=== PATIENT | female | born 1980 | race Caucasian/White ===

== ENCOUNTER → 2018-12-14 | Outpatient (CLI) | payer BC, OTHER ==
[~2018-12-14] MED LIST: CALC-80; CPR500T; HOLD METFORMIN - RECEIVED CONTRAST 20 ML VIAL IV SCH; HYDR1TAB PO; IOHEXOL 350 MG/ML 100 ML (OMNIPAQUE 350) VIAL IV ONE; MULT-608
--- NOTE | 2018-12-14 12:00 | Diagnostic Imaging Report ---
PROCEDURE: CT neck soft tissue with contrast. TECHNIQUE: Multiple contiguous axial images were obtained through the neck after the administration of contrast. Auto Exposure Controls were utilized during the CT exam to meet ALARA standards for radiation dose reduction. INDICATION: Right neck mass COMPARISON: There are no prior studies available for comparison. FINDINGS: Reportedly, there is clinical concern regarding a mass involving the right neck. There is a marker in place in the right supraclavicular region. However, there is no sign of a mass in this area. No other mass or adenopathy involving the neck is identified. The parotid and submandibular glands are symmetrical and within normal limits. The thyroid gland is homogeneous and not enlarged. The tracheal air shadow is not compressed or deviated. The sections through the lung apices and the skull base show no sign of an acute abnormality. IMPRESSION: 1. There is no mass in the area of the patient's palpable abnormality in the right supraclavicular region. Clinical followup is recommended. 2. No other mass or adenopathy is identified. 3. There is no sign of an acute abnormality. Dictated by: Dictated on workstation # [id number]
== END ==
LOC: RAD 09:39
PROVIDERS: ATTEND Otolaryngology Otolaryngology/Facial Plastic Surgery
DX: R22.1 Localized swelling, mass and lump, neck (principal)
CPT/HCPCS: 70491

== ENCOUNTER → 2020-11-27 | Outpatient (CLI) | payer OTHER ==
[~2020-11-27] MED LIST changes: -HOLD METFORMIN - RECEIVED CONTRAST 20 ML VIAL IV SCH; -IOHEXOL 350 MG/ML 100 ML (OMNIPAQUE 350) VIAL IV ONE
--- NOTE | 2020-11-27 11:51 | Diagnostic Imaging Report ---
INDICATION: Neck pain. COMPARISON: None FINDINGS: Frontal, lateral, and open-mouth radiographic views of the cervical spine were obtained. Cervical spine is seen down to the C7-T1 level on the lateral view. Static alignment is maintained. There is no significant jim- or retrolisthesis. There is no evidence of jumped facets. Open-mouth view shows normal C1-C2 alignment. Vertebral body heights are preserved. There is no acute fracture. Mild degenerative changes are noted and consist of intervertebral disc height loss. Note is also made of bilateral C7 cervical ribs. Included portions of the lung apices are clear. IMPRESSION: 1. No acute fracture or dislocation of the cervical spine. 2. Mild multilevel degenerative changes. Dictated by: Dictated on workstation # [id number]
== END ==
LOC: RAD 11:18
PROVIDERS: ATTEND Nurse Practitioner Family
DX: M47.812 Spondylosis without myelopathy or radiculopathy, cervical region (principal)
CPT/HCPCS: 72040

== ENCOUNTER → 2021-01-10 | Outpatient (CLI) | payer OTHER ==
--- NOTE | 2021-01-10 10:24 | Diagnostic Imaging Report ---
PROCEDURE: MR imaging cervical spine without contrast. TECHNIQUE: Multiplanar, multisequence MR imaging of the cervical spine was performed without contrast. INDICATION: Neck pain. No prior studies are available for comparison. Curvature and alignment to the cervical spine is normal. Vertebral body marrow signal is normal. There is some generalized degenerative disc disease with mild disc space narrowing and desiccation and marginal osteophyte formation. The cervical spinal cord shows homogeneous signal intensity and normal morphology. The craniocervical junction is unremarkable. C2-C3: Central canal and neural foramina are widely patent. C3-C4: Broad-based disc/osteophyte complex does indent the ventral thecal sac. No significant canal narrowing is seen. There is very mild neural foraminal narrowing bilaterally. C4-C5: Broad-based disc/osteophyte complex indents the ventral thecal sac. This is very mild narrowing of the central canal. Neural foramina are patent. C5-C6: There is broad-based disc/osteophyte complex with asymmetric left para-midline broad-based disc/osteophyte complex indenting the ventral thecal sac. This does produce moderate narrowing of the canal. There is significant narrowing of the left neural foramen. Right neural foramen is patent. C6-C7: Broad-based disc/osteophyte complex indents the ventral thecal sac. There is mild narrowing of the canal. There is also mild narrowing of bilateral neural foramina. C7-T1: No central canal or neural foraminal narrowing is identified. IMPRESSION: Generalized cervical spondylosis with mild central canal and neural foraminal narrowing described level by level above. Dictated by: Dictated on workstation # [id number]
== END ==
LOC: RAD 08:30
PROVIDERS: ATTEND Nurse Practitioner Family
DX: M47.22 Other spondylosis with radiculopathy, cervical region (principal); M48.02 Spinal stenosis, cervical region
CPT/HCPCS: 72141

== ENCOUNTER 2021-03-04 11:12 | Outpatient (RCR) | payer OTHER | END 2021-03-11 | disposition home or self-care (01) | PROVIDERS: ATTEND Nurse Practitioner Family | DX: M54.2 Cervicalgia (principal) ==

== ENCOUNTER → 2021-06-24 | Outpatient (RCR) | payer OTHER | END | disposition home or self-care (01) | PROVIDERS: ATTEND Nurse Practitioner Family | DX: M54.2 Cervicalgia (principal) ==

== ENCOUNTER 2021-08-22 11:13 | Outpatient (RCR) | payer OTHER | END 2021-08-23 | disposition home or self-care (01) | PROVIDERS: ATTEND Nurse Practitioner Family | DX: M54.2 Cervicalgia (principal) ==

== ENCOUNTER 2021-09-19 10:00 | Outpatient (RCR) | payer OTHER | END 2021-09-23 | disposition home or self-care (01) | PROVIDERS: ATTEND Nurse Practitioner Family | DX: M54.2 Cervicalgia (principal) ==

== ENCOUNTER 2021-10-17 12:58 | Outpatient (RCR) | payer OTHER | END 2021-10-21 | disposition home or self-care (01) | PROVIDERS: ATTEND Nurse Practitioner Family | DX: M54.2 Cervicalgia (principal) ==

== ENCOUNTER → 2021-11-21 | Outpatient (RCR) | payer OTHER | END | disposition home or self-care (01) | PROVIDERS: ATTEND Nurse Practitioner Family | DX: M54.2 Cervicalgia (principal) ==

== ENCOUNTER 2021-12-19 09:24 | Outpatient (RCR) | payer OTHER | END 2021-12-21 | disposition home or self-care (01) | PROVIDERS: ATTEND Nurse Practitioner Family | DX: M54.2 Cervicalgia (principal); F17.200 Nicotine dependence, unspecified, uncomplicated ==

== ENCOUNTER 2022-01-17 11:25 | Outpatient (RCR) | payer OTHER | END 2022-01-21 | disposition home or self-care (01) | PROVIDERS: ATTEND Nurse Practitioner Family | DX: M54.2 Cervicalgia (principal) ==

== ENCOUNTER → 2022-02-20 | Outpatient (RCR) | payer OTHER | END | disposition home or self-care (01) | PROVIDERS: ATTEND Nurse Practitioner Family | DX: M54.2 Cervicalgia (principal) ==

== ENCOUNTER 2022-03-13 09:40 | Outpatient (RCR) | payer OTHER | END 2022-03-23 | disposition home or self-care (01) | PROVIDERS: ATTEND Nurse Practitioner Family | DX: M54.2 Cervicalgia (principal) ==

== ENCOUNTER 2022-04-18 14:00 | Outpatient (RCR) | payer OTHER | END 2022-04-23 | disposition home or self-care (01) | PROVIDERS: ATTEND Nurse Practitioner Family | DX: M54.2 Cervicalgia (principal) ==

== ENCOUNTER 2022-05-22 10:28 | Outpatient (RCR) | payer OTHER | END 2022-05-23 | disposition home or self-care (01) | PROVIDERS: ATTEND Nurse Practitioner Family | DX: M54.2 Cervicalgia (principal) ==

== ENCOUNTER 2022-06-18 14:30 | Outpatient (RCR) | payer OTHER | END 2022-06-23 | disposition home or self-care (01) | PROVIDERS: ATTEND Nurse Practitioner Family | DX: M54.2 Cervicalgia (principal) ==

== ENCOUNTER 2022-07-21 14:25 | Outpatient (RCR) | payer OTHER | END 2022-07-23 | disposition home or self-care (01) | PROVIDERS: ATTEND Nurse Practitioner Family | DX: M54.2 Cervicalgia (principal) ==

== ENCOUNTER 2022-08-22 16:08 | Outpatient (RCR) | payer OTHER | END 2022-08-23 | disposition home or self-care (01) | PROVIDERS: ATTEND Nurse Practitioner Family | DX: M54.2 Cervicalgia (principal) ==

== ENCOUNTER 2022-09-23 11:15 | Outpatient (RCR) | payer OTHER | END 2022-09-23 21:00 | disposition home or self-care (01) | PROVIDERS: ATTEND Nurse Practitioner Family | DX: M54.2 Cervicalgia (principal) ==

== ENCOUNTER 2022-10-17 11:24 | Outpatient (RCR) | payer OTHER | END 2022-10-21 | disposition home or self-care (01) | PROVIDERS: ATTEND Nurse Practitioner Family | DX: M54.2 Cervicalgia (principal) ==

== ENCOUNTER → 2022-11-21 | Outpatient (RCR) | payer OTHER | END | disposition home or self-care (01) | PROVIDERS: ATTEND Nurse Practitioner Family | DX: M54.2 Cervicalgia (principal) ==

== ENCOUNTER 2022-12-18 14:52 | Outpatient (RCR) | payer OTHER | END 2022-12-21 | disposition home or self-care (01) | PROVIDERS: ATTEND Nurse Practitioner Family | DX: M54.2 Cervicalgia (principal) ==

== ENCOUNTER 2023-01-16 10:30 | Outpatient (RCR) | payer OTHER | END 2023-01-21 | disposition home or self-care (01) | PROVIDERS: ATTEND Nurse Practitioner Family | DX: M54.2 Cervicalgia (principal) ==

== ENCOUNTER 2023-02-12 08:52 | Outpatient (RCR) | payer OTHER | END 2023-02-20 | disposition home or self-care (01) | PROVIDERS: ATTEND Nurse Practitioner Family | DX: M54.2 Cervicalgia (principal) ==

== ENCOUNTER 2023-03-20 08:46 | Outpatient (RCR) | payer OTHER | END 2023-03-23 | disposition home or self-care (01) | PROVIDERS: ATTEND Nurse Practitioner Family | DX: M54.2 Cervicalgia (principal) ==

== ENCOUNTER 2023-04-21 10:59 | Outpatient (RCR) | payer OTHER | END 2023-04-23 | disposition home or self-care (01) | PROVIDERS: ATTEND Nurse Practitioner Family | DX: M54.2 Cervicalgia (principal) ==

== ENCOUNTER 2023-06-19 14:29 | Outpatient (RCR) | payer OTHER | END 2023-06-23 | disposition home or self-care (01) | PROVIDERS: ATTEND Nurse Practitioner Family | DX: M54.2 Cervicalgia (principal) ==

== ENCOUNTER → 2023-07-23 | Outpatient (RCR) | payer OTHER | END | disposition home or self-care (01) | PROVIDERS: ATTEND Nurse Practitioner Family | DX: M54.2 Cervicalgia (principal) ==